=== PATIENT | male | born 1950 | race Caucasian/White ===

== ENCOUNTER → 2018-11-30 13:44 | Outpatient (CLI) | payer OTHER, SELFPAY ==
[2018-11-30 14:37] LABS: Cholesterol 180 mg/dL (140-199); Glucose 128 mg/dL (80-110); HDL Cholesterol 85 mg/dL (40-60); LDL Cholesterol Calculated 68 mg/dL (<100); Triglycerides 137 mg/dL (35-150)
[2018-11-30 15:07] LABS: Prostate Specific Antigen Scrn 1.09 ng/mL (0.1-4.0)
[2018-11-30 15:10] LABS: Thyroid Stimulating Hormone 1.79 uIU/mL (0.47-4.68)
== END ==
PROVIDERS: PCP Family Medicine; Visit Provider Family Medicine
DX: E78.5 Hyperlipidemia, unspecified (principal); I10 Essential (primary) hypertension; N28.9 Disorder of kidney and ureter, unspecified; R89.9 Unspecified abnormal finding in specimens from other organs, systems and tissues; Z12.5 Encounter for screening for malignant neoplasm of prostate; Z13.1 Encounter for screening for diabetes mellitus; Z82.49 Family history of ischemic heart disease and other diseases of the circulatory system; Z83.3 Family history of diabetes mellitus
CPT/HCPCS: 36415; 80061; 82947; 84443; G0103

== ENCOUNTER → 2018-12-14 10:10 | Outpatient (CLI) | payer OTHER, SELFPAY ==
[2018-12-14 11:21] LABS: Hemoglobin A1C% w Est Avg Glu 5.4 % (4.0-6.0)
== END ==
PROVIDERS: PCP Family Medicine; Visit Provider Family Medicine
DX: R73.9 Hyperglycemia, unspecified (principal)
CPT/HCPCS: 36415; 83036

== ENCOUNTER 2020-05-25 20:19 | Emergency (ER) | payer MEDICARE, OTHER, SELFPAY ==
--- NOTE | 2020-05-25 20:25 | ED_ITS ---
HPI - Allergic Reaction General Chief complaint: Allergic Reaction Stated complaint: states allergic reaction antifungal spray Time Seen by Provider: 05/25/20 20:20 Source: patient Mode of arrival: Ambulatory Limitations: no limitations History of Present Illness HPI narrative: 70-year-old male former smoker with other noncontributory medical history presents with a chief complaint of swelling to his penis and scrotum along with redness and itching after applying a fungal spray provided by his primary care provider. He was being treated with an antifungal spray and oral Diflucan for and itchy, fungal appearing rash in his groin which is greatly improved. He denies any systemic findings such as trouble breathing, swelling of tongue, lip, throat or any urticarial rash. He has not taken any antihistamines for this. Related Data Previous Rx's Medication Instructions Recorded sildenafil 100 mg tablet See Rx Instructions .ROUTE 07/03/19 .COMPLEX #30 tablet Allergies Allergy/AdvReac Type Severity Reaction Status Date / Time No Known Allergies Allergy Uncoded 12/14/18 09:31 Review of Systems Constitutional Constitutional: Denies chills, Denies fatigue, Denies fever(s), Denies frequent falls, Denies lethargy and Denies weakness Eyes Eyes: Denies change in vision, Denies eye discharge, Denies irritation and Denies loss of vision ENT Ears, Nose, Mouth, and Throat: Denies change in voice, Denies dizziness, Denies neck pain, Denies sore throat and Denies throat swelling Cardiovascular Cardiovascular: Denies chest pain, Denies irregular heart rhythm, Denies lightheadedness, Denies palpitations, Denies dyspnea, Denies dyspnea on exertion and Denies orthopnea Respiratory Respiratory: Denies cough, Denies dyspnea, Denies dyspnea on exertion and Denies wheezing Gastrointestinal Gastrointestinal: Denies abdominal pain, Denies change in bowel habits, Denies diarrhea, Denies nausea and Denies vomiting Musculoskeletal Musculoskeletal: Denies neck pain and Denies numbness Integumentary/Breasts Skin/Breast: Reports pruritus, Reports erythema, Denies rash, Reports skin swelling and Denies wounds Neurologic Neurologic: Denies behavioral changes, Denies confusion, Denies dizziness, Denies frequent falls, Denies loss of vision, Denies numbness and Denies weakness Psychiatric Psychiatric: Denies anxiety, Denies behavioral changes, Denies confusion, Denies depression, Denies homicidal ideation and Denies suicidal ideation Endocrine Endocrine: Denies fatigue, Denies flushing and Denies palpitations Hematologic/Lymphatic Hematologic/Lymphatic: Denies easy bruising Allergic/Immunologic Allergic/Immunologic: Denies urticaria, Denies throat swelling and Denies wheezing Patient History Medical History Anemia (2004) Colitis (2005) Rosacea Tinnitus Surgical History Anesthesia History of colon surgery (2006) Family History Brother Age: 74 Diverticulitis Brother Age: 71 Hypertension Diverticulitis Brother Age: 68 Mental health problem Diverticulitis Diabetes mellitus Father Stroke Heart disease S/P triple vessel bypass Mother Stroke Skin cancer Breast cancer Brother No problems noted. Sister No problems noted. Other Autoimmune disease Social History marital status: number of children: 2 household members: spouse lives independently: Yes caregiver/support person: No housing: house Smoking Status: Former smoker second hand exposure: No alcohol intake: current substance use type: does not use Smoking Status: Former smoker Exam Narrative Exam Narrative: GEN: AOx3 and in mild distress EYES: Pupils are equal, round, and reactive to light and accommodation. Extr aoccular muscles are intact bilaterally. There is no subconjunctival hemorrhage or exudate. ENT: no tongue, lip, or throat swelling CHEST: Lungs are clear to auscultation bilaterally and free of wheezes, rales, or rhonchi. Heart rate is regular rhythm, there are no murmurs, clicks, rubs, or gallops. There is no chest wall tenderness. ABD: Abdomen is soft and nontender. There is no guarding or rebound. Bowel sounds are normal in all 4 quadrants. There is no mass or organomegaly. EXT: Full painless ROM of all extremities with no loss of sensation or strength. SKIN: Skin of penis swelling, soft, nearly translucent. No induration, or fluctuance or other sign of infection. Scrotum erythematous, and swollen but soft. No pain. No phimosis or paraphimosis. Otherwise, warm, pink, and dry. No erythema or rash Initial Vital Signs Initial Vital Signs: Vital Signs Temperature 98.3 F 05/25/20 20:34 Pulse Rate 87 05/25/20 20:34 Respiratory Rate 18 05/25/20 20:34 Blood Pressure 183/88 H 05/25/20 20:34 Pulse Oximetry 98 05/25/20 20:34 Course Orders Ordered: Discontinued Medications Diphenhydramine HCl (Diphenhydramine 25 Mg Tablet) 50 mg PO NOW ONE Stop: 05/25/20 21:32 Last Admin: 05/25/20 21:34 Dose: 50 mg Documented by: AUBRIE Vital Signs Vital signs: Vital Signs - 8 hr 05/25/20 20:34 05/25/20 21:39 Temperature 98.3 F Pulse Rate 87 73 Respiratory Rate 18 16 Blood Pressure 183/88 H 146/73 H Pulse Oximetry 98 98 MDM - Allergic Reaction MDM Narrative Medical decision making narrative: Possible localized allergic reaction to fungal spray or (more likely) more of a sensitivity reaction or contact dermatitis. Infection considered, but thought unlikely based on exam and temporal relationship with use of spray. We discussed the use of antihistamines, cessation of fungal spray and continuation of Doxycycline. Return precautions given and questions answered to his apparent satisfaction. Discharge Plan Departure Patient Disposition: Home Clinical Impression: Localized adverse drug reaction Instructions: DI for Adverse Drug Reaction -- Allergic Activity Restrictions/Additional Instructions: *You have been diagnosed with [localized reaction to medication] *What to do: *Take medications as directed: Stop the antifungal for now. Please consider antihistamine such as Benadryl or Melani to help with the itching and redness. *Follow up with your primary care provider in 2-3 days, call for an appointment. Let them know you were seen in the Emergency Department and that we ask that you be seen in follow up *Return to ER if you should have any new, worsening or concerning symptoms Prescriptions: No Action sildenafil 100 mg tablet See Rx Instructions .ROUTE .COMPLEX Qty: 30 RF: 0 Referrals: Phoebe Dominguez MD [Primary Care Provider] -
[2020-05-25 20:34] VITALS: BP 183/88; PULSE 87; RESP 18; TEMP 36.8; O2SAT 98; BMI 25.5
[2020-05-25] MEDS: diphenhydrAMINE 25 MG TABLET 50 MG PO (21:34)
[2020-05-25 21:39] VITALS: BP 146/73; PULSE 73; RESP 16; O2SAT 98
== END 2020-05-25 21:40 | disposition home or self-care (01) ==
PROVIDERS: Emergency Provider Emergency Medicine; PCP Family Medicine
DX: T78.40XA Allergy, unspecified, initial encounter (principal); T50.905A Adverse effect of unspecified drugs, medicaments and biological substances, initial encounter
CPT/HCPCS: 99281; 99282

== ENCOUNTER → 2021-01-29 16:27 | Outpatient (CLI) | payer MEDICARE, OTHER, SELFPAY ==
[2021-01-29 17:00] LABS: COVID19 -Nasal RAPID Negative (Negative)
== END ==
PROVIDERS: PCP Family Medicine; Visit Provider Physician Assistant
DX: Z20.822 Contact with and (suspected) exposure to COVID-19 (principal)
CPT/HCPCS: 87635

== ENCOUNTER → 2021-09-09 12:54 | Outpatient (CLI) | payer MEDICARE, OTHER, SELFPAY ==
--- NOTE | 2021-09-09 | DI.CT.S_ITS ---
PROCEDURE: CT SINUS SCREEN WO CON INDICATIONS: NASAL OBSTRUCTION/CHRONIC PANSISNUSITIS TECHNIQUE: Noncontrast 3.0 mm axial images acquired from the frontal sinuses to the mid-sella, with coronal and sagittal reformats. For radiation dose reduction, the following was used: automated exposure control, adjustment of mA and/or kV according to patient size. COMPARISON: None. FINDINGS: Image quality: Excellent. Sinuses: Minimal right maxillary sinus mucosal thickening is present. Small mucous retention cyst versus polyp is present in the right sphenoid sinus. Minimal frontal and ethmoid air cell mucosal thickening is present. Ostiomeatal Complexes: Ostiomeatal complexes are patent. Miscellaneous: Visualized intra-orbital contents are normal. There is a right middle paradoxical turbinate. There is slight hypertrophy of the inferior turbinates in comparison to the middle turbinates. There is no wilson bullosa. Prominent leftward nasal septal deviation. IMPRESSION: Scattered minimal mucosal thickening. No fluid levels. Ostiomeatal complexes are patent. Dictated by: Valeria Reddy M.D. on 09/09/2021 at 20:46 Approved by: Valeria Reddy M.D. on 09/09/2021 at 20:50
== END ==
PROVIDERS: PCP Family Medicine; Referring Provider Otolaryngology; Visit Provider Otolaryngology
DX: J32.4 Chronic pansinusitis (principal); J34.89 Other specified disorders of nose and nasal sinuses
CPT/HCPCS: 70486

== ENCOUNTER → 2021-10-29 09:13 | Outpatient (CLI) | payer MEDICARE, OTHER, SELFPAY ==
[2021-10-29 15:01] LABS: COVID19 -Nasal RAPID Negative (Negative)
== END ==
PROVIDERS: PCP Family Medicine; Visit Provider Family Medicine Sleep Medicine
DX: Z20.822 Contact with and (suspected) exposure to COVID-19 (principal)
CPT/HCPCS: 87635; C9803

== ENCOUNTER 2021-10-30 10:00 | Day surgery (SDC) | payer MEDICARE, OTHER, SELFPAY ==
[2021-10-30 11:15] VITALS: BP 133/65; PULSE 57; RESP 16; TEMP 36.7; O2SAT 100; BMI 25.8
[2021-10-30] MEDS: LACTATED RINGERS 1,000 ML 42 ML IV (11:32)
[2021-10-30] MEDS: OXYMETAZOLINE NASAL SPRAY 15 ML 2 SPRAYS NASAL ×2 (11:46→14:43)
--- NOTE | 2021-10-30 14:11 | PM.PREOP ---
Pre-operative Note Interval Note History & Physical reviewed/Exam performed by Physician: Yes Changes to H&P: No
--- NOTE | 2021-10-30 14:11 | PM.HP.1 ---
History of Present Illness History of Present Illness Date Patient Seen: 10/30/21 Time Patient Seen: 14:11 Chief complaint: SUSAN Narrative: 71-year-old male with chronic primarily dependent nasal obstruction, incompletely responsive to medical therapy, presents for bilateral submucous resection of inferior turbinates under general anesthesia. He was last seen in clinic 09/16/2021, note reviewed, no interval health changes. He received medical clearance from his PCP 09/26/2021, reviewed. Patient History Medical History Anemia (2004) Colitis (2005) Rosacea Skin tag Tinnitus Surgical History Anesthesia History of colon surgery (2005) Family & Social History Family History Brother Age: 76 Diverticulitis Brother Age: 73 Hypertension Diverticulitis Brother Age: 70 Mental health problem Diverticulitis Diabetes mellitus Father Stroke Heart disease S/P triple vessel bypass Mother Stroke Skin cancer Breast cancer Brother No problems noted. Sister No problems noted. Other Autoimmune disease Social History: household members spouse lives independently Yes caregiver/support person No Tobacco & Substance use: Tobacco type cigarettes Smoking Status Former smoker alcohol intake never Substance Use Type does not use Meds Home Medications and Allergies Home Medications Medication Instructions Recorded Confirmed Type sildenafil 100 mg tablet See Rx Instructions .ROUTE 01/28/21 06/17/21 Rx .COMPLEX #30 tab tacrolimus 0.1 % topical ointment 1 applic TOPICAL BID 03/12/21 10/30/21 History vit C 250 mg-vit E 90 mg-zinc 40 1 tab PO BID 03/12/21 06/17/21 History mg-copper 1 [id number] capsule (PreserVision AREDS-2) Allergies Allergy/AdvReac Type Severity Reaction Status Date / Time No Known Allergies Allergy Uncoded 10/30/21 11:13 Review of Systems Review of Systems Narrative: Negative except as listed in the HPI Exam Vital Signs (past 8 hours): - 10/30/21 11:15 Temperature 98.0 F Pulse Rate 57 L Respiratory Rate 16 Blood Pressure 133/65 Pulse Oximetry 100 Oxygen Delivery Method Room Air Narrative Exam Narrative: Well-developed well-nourished male in no acute distress. Heart regular rate and rhythm without murmur, lungs clear to auscultation bilaterally. Assessment & Plan Assessment & Plan narrative: Assessment: Dependent nasal airway obstruction, inferior turbinate hypertrophy, LANA Plan: Following discussion of the material risks benefits complications and alternatives, the patient elected to proceed with bilateral submucous resection of the inferior turbinates as outpatient. Time Spent With Patient Critical Care time: I spent a total of [] minutes of critical care time on this patient's care today; this time is exclusive of procedural time.
--- NOTE | 2021-10-30 14:14 | PM.OP.1 ---
Operative Date/Time/Diagnoses Date of procedure: 10/30/21 Time of procedure: 15:01 Pre-op diagnosis: Dependent nasal airway obstruction, inferior turbinate hypertrophy, LANA Post-op diagnosis: same Procedure & Clinicians Procedure: Bilateral submucous resection of inferior turbinates Same procedure as scheduled: Yes Indications: 71-year-old male with the above diagnoses incompletely managed with medical therapy presents for the above procedure. Following discussion of the material risks benefits complications and alternatives, he elected to proceed. Surgeon: Praveen Monk Click Yes if Unassisted: Yes Anesthesia Type: General and Local Operative Notes Findings: Moderate IT hypertrophy Estimated Blood Loss (mL): 5 Procedure in detail: Following identification and confirmation of consent as well as preoperative Afrin nasal spray, the patient was brought to the operating room suite and placed in the supine position. General endotracheal anesthesia was administered. I infiltrated the head of each inferior turbinate bilaterally with 1% lidocaine 1 100,000 epinephrine followed by temporary packing with cotton with Afrin and 4% lidocaine. Following sterile prep and drape, the packing was removed and I incised the head of each inferior turbinate vertically with a 15 blade, then elevated the anterior 25% of the bone with partial bone and submucosal tissue resection with forceps. A 25 gauge spinal needle was used to impale the length of the turbinate, with cautery on a setting of 15 activated on slow withdrawal on 2 passes. The turbinates were then outfractured. A merocel sponge was placed anteriorly bilaterally and inflated with Afrin. The procedure completed, sponge count was correct and the patient was extubated in the operating room and taken to recovery room in stable condition without known complication. Complications: none Post-operative Condition: stable Disposition: same day surgery Plan for aftercare: Nasal saline every hour while awake, begin irrigations t.i.d. tomorrow if desired. Remove nasal packing tonight before bed after soaking with Afrin, may use Afrin for any bleeding upon removal. Polysporin To the nostrils at all times, Tylenol alternating with Advil for pain control, oxycodone for breakthrough pain. Elevate head of bed, no nose blowing, no straining for 2 weeks. May follow-up in 2-4 weeks, call sooner with concerns.
[2021-10-30] MEDS: LIDOCAINE 1% W/EPI 20 ML INJ (14:42)
[2021-10-30] MEDS: LIDOCAINE 4% SOLN 50 ML 20 ML TOP (14:43)
--- NOTE | 2021-10-30 14:46 | SUR.OPER ---
Supine on padded OR bed, head on pillow, right arm secured on padded arm board at <90 degrees abduction, left arm padded and tucked at side with drawsheet, legs uncrossed, safety belt at thigh, gel pad at heels.
[2021-10-30 15:04] VITALS: BP 139/68; PULSE 62; RESP 15; TEMP 36.4; O2SAT 98
[2021-10-30 15:10] VITALS: BP 119/64; PULSE 60; RESP 10; O2SAT 98
[2021-10-30 15:15] VITALS: BP 127/66; PULSE 60; RESP 16; O2SAT 98
[2021-10-30 15:21] VITALS: BP 125/69; PULSE 61; RESP 12; O2SAT 99
[2021-10-30 15:50] VITALS: BP 127/79; PULSE 64; RESP 22; TEMP 37.2; O2SAT 99
== END 2021-10-30 16:05 | disposition home or self-care (01) ==
PROVIDERS: PCP Family Medicine; Referring Provider Otolaryngology; Visit Provider Otolaryngology
PROC: (CPT 30520; principal; 2021-10-30 12:00)
DX: J34.89 Other specified disorders of nose and nasal sinuses (principal); J34.3 Hypertrophy of nasal turbinates; G47.33 Obstructive sleep apnea (adult) (pediatric)
CPT/HCPCS: 30140; A9270; J1100; J2405; J2704; J3010

== ENCOUNTER → 2022-03-03 09:23 | Outpatient (CLI) | payer MEDICARE, OTHER, SELFPAY ==
[2022-03-03 11:39] LABS: Add Manual Diff / Slide Review NO; Basophils Absolute Auto 100 /uL (0-100); Basophils Percent Auto 1.3 % (0-2); Eosinophils Absolute Auto 100 /uL (0-450); Hematocrit 42.5 % (41-53); Hemoglobin 14.2 g/dL (13.5-17.5); Lymphocytes Absolute Auto 1900 /uL (1100-4500); Lymphocytes Percent Auto 37.5 % (25-40); Mean Corpuscular HGB Conc 33.5 % (30-36); Mean Corpuscular Hemoglobin 30.8 PG (26-34); Mean Corpuscular Volume 91.9 fL (80-100); Monocytes Absolute Auto 500 /uL (0-900); Monocytes Percent Auto 10.1 % (3-14); Neutrophils Absolute Auto 2500 /uL (1500-7000); Neutrophils Percent Auto 49.1 % (50-75); Platelet Count 252 X10^3/uL (150-400); Red Blood Cell Count 4.62 X10^6/uL (4.5-5.9); Red Cell Distribution Width 12.6 % (11.6-14.8); White Blood Cell Count 5.1 X10^3/uL (4.5-11.0)
[2022-03-03 12:21] LABS: Alanine Aminotransferase 17 IU/L (<50); Albumin 4.1 g/dL (3.5-5.0); Albumin Globulin Ratio 1.6 (1.0-2.8); Alkaline Phosphatase 72 U/L (38-126); Aspartate Aminotransferase 24 IU/L (17-59); BUN Creatinine Ratio 18.4 (6-22); Bilirubin Total 0.4 mg/dL (0.2-1.3); Blood Urea Nitrogen 21 mg/dL (9-20); Calcium 8.5 mg/dL (8.4-10.2); Carbon Dioxide 25 mmol/L (22-32); Chloride 107 mmol/L (98-107); Cholesterol 202 mg/dL (140-199); Estimated Glomerular Filt Rate > 60 mL/min (>60); Globulin 2.5 g/dL (1.7-4.1); Glucose 99 mg/dL (80-110); HDL Cholesterol 88 mg/dL (40-60); HEMOLYSIS 15 (0-50); LDL Cholesterol Calculated 102 mg/dL (<100); Potassium 4.8 mmol/L (3.4-5.1); Sodium 140 mmol/L (137-145); Total Protein 6.6 g/dL (6.3-8.2); Triglycerides 60 mg/dL (35-150)
[2022-03-03 12:28] LABS: Vitamin D 25 Hydroxy (D3) 28.2 ng/mL (30.0-100.0)
[2022-03-03 12:46] LABS: TSH w/ Reflex to FT4 2.85 uIU/mL (0.47-4.68)
== END ==
PROVIDERS: PCP Family Medicine; Referring Provider Family Medicine; Visit Provider Family Medicine
DX: E78.2 Mixed hyperlipidemia (principal); E56.9 Vitamin deficiency, unspecified; Z13.29 Encounter for screening for other suspected endocrine disorder; Z87.19 Personal history of other diseases of the digestive system; Z13.0 Encounter for screening for diseases of the blood and blood-forming organs and certain disorders involving the immune mechanism; Z83.2 Family history of diseases of the blood and blood-forming organs and certain disorders involving the immune mechanism; E55.9 Vitamin D deficiency, unspecified
CPT/HCPCS: 36415; 80053; 80061; 82306; 84443; 85025

== ENCOUNTER → 2022-08-17 11:55 | Outpatient (ROUT) | payer MEDICARE, OTHER, SELFPAY ==
[2022-08-17 12:17] LABS: COVID19 -Nasal RAPID POSITIVE (Negative)
== END ==
PROVIDERS: PCP Family Medicine; Visit Provider Family Medicine
DX: U07.1 COVID-19 (principal); Z20.822 Contact with and (suspected) exposure to COVID-19
CPT/HCPCS: 87635

== ENCOUNTER → 2023-02-27 09:51 | Outpatient (CLI) | payer MEDICARE, OTHER, SELFPAY ==
[2023-02-27 11:20] LABS: Alanine Aminotransferase 25 IU/L (<50); Albumin 4.4 g/dL (3.5-5.0); Albumin Globulin Ratio 1.5 (1.0-2.8); Alkaline Phosphatase 64 U/L (38-126); Aspartate Aminotransferase 32 IU/L (17-59); BUN Creatinine Ratio 12.3 (6-22); Bilirubin Total 0.5 mg/dL (0.2-1.3); Blood Urea Nitrogen 16 mg/dL (9-20); Calcium 8.8 mg/dL (8.4-10.2); Carbon Dioxide 25 mmol/L (22-32); Chloride 106 mmol/L (98-107); Estimated Glomerular Filt Rate 58 mL/min (>60); Globulin 2.9 g/dL (1.7-4.1); Glucose 111 mg/dL (80-110); HEMOLYSIS < 15 (0-50); Potassium 4.6 mmol/L (3.4-5.1); Sodium 138 mmol/L (137-145); Total Protein 7.3 g/dL (6.3-8.2)
[2023-02-27 11:36] LABS: Vitamin D 25 Hydroxy (D3) 29.4 ng/mL (30.0-100.0)
[2023-02-28 08:28] LABS: Cholesterol HDL Ratio 2.1 ratio (0.0-5.0); Cholesterol,Total 179 mg/dL (100-199); HDL Cholesterol 87 mg/dL (>39); LDL Cholesterol Cal 78 mg/dL (0-99); Triglycerides 73 mg/dL (0-149); VLDL Cholesterol Cal 14 mg/dL (5-40)
== END ==
PROVIDERS: PCP Nurse Practitioner Family; Referring Provider Nurse Practitioner Family; Visit Provider Nurse Practitioner Family
DX: E55.9 Vitamin D deficiency, unspecified (principal); E78.5 Hyperlipidemia, unspecified
CPT/HCPCS: 36415; 80053; 80061; 82306